=== PATIENT | female | born 1940 | race Caucasian/White ===

== ENCOUNTER → 2017-10-25 | Outpatient (CLI) | payer MEDICARE | END | disposition home or self-care (01) | LOC: KCIC MRI 16:09 | DX: S49.81XA Other specified injuries of right shoulder and upper arm, initial encounter (principal); M75.101 Unspecified rotator cuff tear or rupture of right shoulder, not specified as traumatic | CPT/HCPCS: 73221 ==

== ENCOUNTER → 2018-01-19 | Outpatient (CLI) | payer MEDICARE, BC ==
--- NOTE | 2018-01-20 13:46 | KCIC ---
MR of the left tibia fibula HISTORY: Left leg edema. Trauma to the left lower leg in September. Continued edema and pain. TECHNIQUE: Routine multiplanar sequences are obtained. FINDINGS: There are several nodular structures in the subcutaneous tissues medial to the distal tibia, largest measures 17 mm. No evidence of an organized fluid collection or drainable abscess. Only mild generalized subcutaneous edema. Muscle tissue is intact. No bone lesion. No acute fracture. Limited visualization of the knee demonstrates primary osteoarthritis. IMPRESSION: Several small nonspecific soft tissue nodules medial to the distal tibia. These could represent enlarged lymph nodes but other mass is possible. These could be followed with ultrasound surveillance to document any progression or regression. Electronically signed by: Joce Parra MD (01/20/2018 1:43 PM) [id number]
== END | disposition home or self-care (01) ==
LOC: KCIC MRI 15:49
PROVIDERS: ATTEND Physician Assistant
DX: M79.662 Pain in left lower leg (principal); R60.0 Localized edema
CPT/HCPCS: 73718

== ENCOUNTER → 2018-03-10 | Outpatient (CLI) | payer MEDICARE, BC | END | disposition home or self-care (01) | LOC: PMGWOUND 11:22 | PROVIDERS: ATTEND Emergency Medicine Undersea and Hyperbaric Medicine | DX: L97.221 Non-pressure chronic ulcer of left calf limited to breakdown of skin (principal); I87.2 Venous insufficiency (chronic) (peripheral); E03.9 Hypothyroidism, unspecified; M81.0 Age-related osteoporosis without current pathological fracture; Z87.891 Personal history of nicotine dependence | CPT/HCPCS: G0463 ==

== ENCOUNTER → 2018-03-18 | Outpatient (CLI) | payer MEDICARE, BC | END | disposition home or self-care (01) | LOC: PMGWOUND 08:32 | PROVIDERS: ATTEND Preventive Medicine Undersea and Hyperbaric Medicine | DX: L97.828 Non-pressure chronic ulcer of other part of left lower leg with other specified severity (principal); E03.9 Hypothyroidism, unspecified; M81.0 Age-related osteoporosis without current pathological fracture; Z87.891 Personal history of nicotine dependence | CPT/HCPCS: 99214; G0463 ==

== ENCOUNTER → 2018-07-14 | Outpatient (CLI) | payer MEDICARE, BC ==
--- NOTE | 2018-07-14 11:21 | KCIC ---
MRI study of the left lower leg without contrast Clinical indications: Left ankle and left leg pain. History of a left lower leg wound. Patient has had care treatment after the last MRI study. Head injury last September 2017. History of residual left leg numbness and left ankle pain when bearing weight. COMPARISON: Left lower leg MRI study dated January 20, 2018. FINDINGS: The previously seen subcutaneous soft tissue edema has resolved. The previously seen nodularity of the medial aspect of the subcutaneous soft tissues has decreased significantly in size. This may represent resolving lymphadenopathy or improvement of varicosities.There is mild soft tissue edema along the anterior medial ridge of the shaft of the tibia which has improved. This may represent improvement of soft tissue edema related to improvement of cellulitis/infection or may represent improvement of medial tibial stress syndrome i.e. ventura splints. No fluid collection or abscess or muscle edema or soft tissue mass is evident. No marrow signal abnormality or fracture is seen. No tendon tear is seen. The mortise ankle joint is unremarkable and no joint effusion is seen. No osteochondral abnormality of the dome of the talus or the tibial plafond is seen. IMPRESSION: Resolving subcutaneous soft tissue edema or resolving cellulitis. No soft tissue defect or wound or soft tissue abscess is evident. Resolving soft tissue nodules of the medial aspect of the left lower leg described previously on study dated January 19, 2018. This may represent resolving reactive lymphadenopathy or resolving varicosities. No new abnormality. Electronically signed by: Alpesh Dewitt MD (07/14/2018 11:18 AM) [id number]
== END | disposition home or self-care (01) ==
LOC: KCIC MRI 08:49
PROVIDERS: ATTEND Family Medicine
DX: M25.572 Pain in left ankle and joints of left foot (principal)
CPT/HCPCS: 73718